=== PATIENT | female | born 1995 | race Caucasian/White ===

== ENCOUNTER 2017-08-10 19:34 | Emergency (ER) | payer OTHER ==
[2017-08-10] MEDS: CEFTRIAXONE 1 GM INJ IM (20:06)
[2017-08-10] MEDS: LIDOCAINE 1% (MDV) 10 ML INJ INJ (20:06)
== END 2017-08-10 20:15 | disposition home or self-care (01) ==
LOC: FTE 19:34
DX: L03.116 Cellulitis of left lower limb (principal)
CPT/HCPCS: 96372; 99284-25